=== PATIENT | male | born 1965 | race American Indian/Alaskan Native ===

== ENCOUNTER 2017-11-30 06:48 | Day surgery (SDC) | payer BC ==
[2017-11-21 11:02] VITALS: BMI 26.9
[2017-11-30] MEDS ORDERED: Propofol 10 mg/ml Inj (20 ML) ONE (07:48)
[2017-11-30] MEDS ORDERED: Sodium Chloride 0.9% 1,000 ML IV SCH (09:00)
[2017-11-30 09:09] VITALS: RESP 18
[2017-11-30 09:44] VITALS: BP 127/87; PULSE 84; TEMP 97.7; O2SAT 100
== END 2017-11-30 10:24 | disposition home or self-care (01) ==
LOC: ENDO 06:48
PROVIDERS: ATTEND Internal Medicine Gastroenterology
DX: Z12.11 Encounter for screening for malignant neoplasm of colon (principal); D12.5 Benign neoplasm of sigmoid colon; K64.1 Second degree hemorrhoids
CPT/HCPCS: 45385; 88305; J2704; J3010; J7030